=== PATIENT | male | born 1960 | race Caucasian/White ===

== ENCOUNTER → 2024-07-23 06:58 | Outpatient (REF) | payer BC, SELFPAY | LOC: RAD 06:58 | PROVIDERS: ATTENDING PHYSICIAN Physician Assistant; FAMILY PHYSICIAN Family Medicine | DX: E89.0 Postprocedural hypothyroidism (principal); E04.9 Nontoxic goiter, unspecified | CPT/HCPCS: 76536 ==

== ENCOUNTER → 2024-08-23 08:19 | Outpatient (REF) | payer BC, SELFPAY | LOC: RCS 08:19 | PROVIDERS: ATTENDING PHYSICIAN Internal Medicine Cardiovascular Disease; FAMILY PHYSICIAN Family Medicine | DX: I42.8 Other cardiomyopathies (principal) | CPT/HCPCS: 93306 ==

== ENCOUNTER 2025-03-20 09:31 | Emergency (ER) | payer BC, MEDICARE, SELFPAY ==
[2025-03-20 09:53] VITALS: BP 149/97
[2025-03-20 10:10] VITALS: BMI 31.1
--- NOTE | 2025-03-20 11:18 | ED.GENMED ---
History of Present Illness
General
Chief Complaint: Musculo-Skeletal Complaint
Time Seen by Provider: 03/20/25 10:34
History of Present Illness
History of Present Illness:
Note:
CHIEF COMPLAINT(S)
Right shoulder pain following a fall.
HISTORY OF PRESENT ILLNESS
The patient is a 65-year-old male who presents with right shoulder pain. The symptoms began after he slipped while carrying a bucket of water and a bucket of sweat in each hand, landing directly on his right shoulder. This occurred on Tuesday, and he
has been experiencing significant swelling and pain since the incident, with a limitation in the ability to move the shoulder. There is no pain radiating into the chest. The patient reports no improvement and has been managing the pain at home but
thought initially he could sleep it off.
SOCIAL DETERMINANTS AFFECTING HEALTH
The patient reported driving himself to the medical facility, indicating no immediate transportation barriers.
MEDICATIONS
The patient is currently on blood thinners.
REVIEW OF SYSTEMS
- Musculoskeletal: Significant swelling in the right shoulder with pain restricting motion.
- No pain reported radiating to the chest or other areas.
PHYSICAL EXAM
- General: Patient appears well.
- Musculoskeletal: Significant swelling of the right shoulder with no clear bony deformity noted. Tenderness noted along the anterior portion of the shoulder joint, but no bony tenderness observed along the distal clavicle or acromion process.
Passive range of motion is limited due to pain. The radial pulse on the right is strong. Nursing notes reviewed and vital signs reviewed.
PLAN
1. Prescribe analgesics for pain management.
2. Apply ice and maintain immobilization with a sling to the affected shoulder.
3. Follow up with orthopedic consultation for further evaluation, including potential MRI to assess any structural damage in the absence of a fracture.
4. Monitor for potential complications due to the patients use of blood thinners.
DIFFERENTIAL DIAGNOSIS
The Differential Diagnosis includes, in no particular order and is not limited to:
1. Shoulder joint contusion.
2. Hemarthrosis.
3. Rotator cuff injury.
4. Glenohumeral joint dislocation.
5. Shoulder sprain.
6. Acromioclavicular joint injury.
7. Subacromial bursitis.
8. Fracture (unlikely based on initial x-ray results).
9. Labral tear.
10. Frozen shoulder syndrome.
Disposition:
SUMMARY OF ENCOUNTER
The patient is a 65-year-old male who presented with right shoulder pain following a fall two days prior, where he landed directly on his flexed and abducted right shoulder. He has a large hemarthrosis, but x-rays show no evidence of bone injury.
During the visit, the management included applying a sling for immobilization, providing analgesics, and advising on outpatient follow-up for further evaluation and management.
PLAN
The patient was prescribed analgesics for pain relief, instructed to use a sling for shoulder immobilization, and advised to follow up with an service specialist for further assessment and possible additional imaging.
INDEPENDENT INTERPRETATION OF TESTS
My independent interpretation of the x-ray is that there is no evidence of bone injury in the right shoulder.
MEDICATION RECONCILIATION
Analgesics were prescribed for pain management.
MEDICAL DECISION MAKING
The patient presented with acute right shoulder pain post-fall. Consideration was given to the potential diagnosis of hemarthrosis in absence of fracture. The plan included pain management with analgesics and immobilization of the shoulder with a
sling. Outpatient orthopedic follow-up was advised to manage the hemarthrosis and to evaluate for any additional structural injury. The review of the social determinants of health indicated no barriers to transportation, allowing for outpatient
management.
Past History
Past History
ED Past Medical History: HTN and Other (Thyroid disorder)
ED Past Surgical History: None
Social History
Tobacco: Former smoker
Phy Exam
Physical Exam
Physical Exam:
.
Course
Orders/Labs/Results
Orders:
Orders
03/20/25 09:58
CR Shoulder, Trauma - Right Urgent
Comment:
Reason For Exam: fall/pain
Vital Signs
Initial and Last Documented VS:
Initial Vital Signs
Temp Pulse Resp BP Pulse Ox
98.4 F 57 20 149/97 98
03/20/25 09:53 03/20/25 09:53 03/20/25 09:53 03/20/25 09:53 03/20/25 09:53
Last Documented Vital Signs
Temp Pulse Resp BP Pulse Ox
98.4 F 57 20 149/97 98
03/20/25 09:53 03/20/25 09:53 03/20/25 09:53 03/20/25 09:53 03/20/25 09:53
*Pulse Oximetry
Patient hypoxic: no
Comment: 98%
*Critical Care Note
Total Time (30-74mins, 75-104mins- exclusive of procedures): Not Applicable
ED Attending Note
-
Portions of this chart may have been created with voice recognition software.� Occasional wrong word or��sound alike� substitutions may have occurred due to the inherent limitations of voice recognition software.
Discharge Plan
Departure
Patient Disposition: Home (Routine Discharge)
Date of Disposition: 03/20/25
Time of Disposition: 11:18
Patient with high blood pressure during this ER visit?: No
Discharge Problem:
Hemarthrosis of right shoulder
Instructions: Contusion (DC)
Prescriptions:
New
oxycodone 5 mg tablet
5 mg PO Q8H PRN (Reason: Pain) Qty: 10 0RF
No Action
furosemide 40 mg tablet
40 mg PO DAILY
hydrocodone-acetaminophen 5-325 mg Tablet
1 tab PO Q4HPRN PRN (Reason: back pain)
levothyroxine 50 mcg Tablet
150 mcg PO DAILY
Eliquis 5 mg Tablet
5 mg PO BID Qty: 60 0RF
dofetilide 500 mcg Capsule
500 mcg PO Q12H Qty: 60 6RF
Entresto 49-51 mg tablet
1 tab PO BID Qty: 60 6RF
carvedilol 3.125 mg tablet
3.125 mg PO BID Qty: 60 6RF
Referrals:
Sacha Melissa MD [Active, Orthopedics]
July Ledezma MD [Family Provider, Family Practice]
Activity Restrictions/Additional Instructions:
Remove the sling for at least 1 hour each day to allow the elbow and shoulder to stretch and relax. Follow-up with orthopedics as soon as possible
Interventions
Interventions:
*Risk Screen - Suicide Last Done: 03/20/25 09:53
*General Assessment Last Done: 03/20/25 09:53
*Neglect/Abuse Screening Last Done: 03/20/25 09:53
*ED- Fall Risk Assessment Last Done: 03/20/25 10:10
*ED COVID-19 Vaccine History Last Done: 03/20/25 09:53
*Nursing Disposition Last Done: 03/20/25 11:32
ED-Musculoskeletal Assessment Last Done: 03/20/25 10:10
Discharge Date and Time
Discharge Date/Time: 03/20/25 11:35
Print Language: GEORGIAN
== END 2025-03-20 11:35 | disposition home or self-care (01) ==
LOC: EMR 09:31
PROVIDERS: EMERGENCY PHYSICIAN Emergency Medicine; FAMILY PHYSICIAN Family Medicine
DX: M25.011 Hemarthrosis, right shoulder (principal); S49.91XA Unspecified injury of right shoulder and upper arm, initial encounter; W01.0XXA Fall on same level from slipping, tripping and stumbling without subsequent striking against object, initial encounter; I10 Essential (primary) hypertension
CPT/HCPCS: 99283; 73030

== ENCOUNTER → 2025-04-23 14:17 | Outpatient (REF) | payer MEDICARE, BC, SELFPAY | LOC: RAD 14:17 | PROVIDERS: ATTENDING PHYSICIAN Family Medicine | DX: R10.32 Left lower quadrant pain (principal); K62.5 Hemorrhage of anus and rectum | CPT/HCPCS: 74177; Q9967 ==

== ENCOUNTER → 2025-06-06 09:41 | Outpatient (REF) | payer MEDICARE, BC, SELFPAY ==
[2025-06-06 10:34] LABS: Hematocrit 42.1 % (39.0-52.0); Hemoglobin 14.4 g/dL (13.0-18.0); Mean Corp Hgb Conc. 34.2 g/dL (33.0-37.0); Mean Corpuscular Volume 90.7 fL (80.0-94.0); Nucleated Red Blood Cells % 0 % (-); Platelet Count 236 10^3/uL (130-400); Red Cell Dist. Width 12.6 % (11.5-14.5)
[2025-06-06 11:15] LABS: Blood Urea Nitrogen 19 mg/dl (9-20); Calcium 9.8 mg/dl (8.4-10.2); Carbon Dioxide 28 mmol/L (22-30); Chloride 105 mmol/L (98-107); Glucose 107 mg/dl (70-99); Potassium 4.6 mmol/L (3.5-5.1); Sodium 141 mmol/L (135-145); eGFR > 60.00
== END ==
LOC: REG 09:41
PROVIDERS: ATTENDING PHYSICIAN Orthopaedic Surgery Hand Surgery; FAMILY PHYSICIAN Family Medicine
DX: Z01.818 Encounter for other preprocedural examination (principal)
CPT/HCPCS: 36415; 80048; 85025

== ENCOUNTER 2025-07-08 08:50 | Outpatient (RCR) | payer MEDICARE, BC, SELFPAY | END 2025-07-08 23:59 | disposition home or self-care (01) | LOC: RPT 08:50 | PROVIDERS: ATTENDING PHYSICIAN Student in an Organized Health Care Education/Training Program; FAMILY PHYSICIAN Family Medicine | DX: Z47.89 Encounter for other orthopedic aftercare (principal); Z98.890 Other specified postprocedural states (principal); Z73.6 Limitation of activities due to disability; M62.81 Muscle weakness (generalized); S46.211D Strain of muscle, fascia and tendon of other parts of biceps, right arm, subsequent encounter; M25.511 Pain in right shoulder; W12.XXXD Fall on and from scaffolding, subsequent encounter | CPT/HCPCS: 97010; 97110; 97140; 97162 ==

== ENCOUNTER 2025-08-09 06:53 | Outpatient (RCR) | payer MEDICARE, BC, SELFPAY | END 2025-08-09 23:59 | disposition home or self-care (01) | LOC: RPT 06:53 | PROVIDERS: ATTENDING PHYSICIAN Student in an Organized Health Care Education/Training Program; FAMILY PHYSICIAN Family Medicine | DX: Z47.89 Encounter for other orthopedic aftercare (principal); Z73.6 Limitation of activities due to disability; M62.81 Muscle weakness (generalized); S46.211D Strain of muscle, fascia and tendon of other parts of biceps, right arm, subsequent encounter; M25.511 Pain in right shoulder; W12.XXXD Fall on and from scaffolding, subsequent encounter; Z98.890 Other specified postprocedural states | CPT/HCPCS: 97010; 97110; 97140 ==

== ENCOUNTER → 2025-09-02 07:58 | Outpatient (REF) | payer MEDICARE, BC, SELFPAY | LOC: RCS 07:58 | PROVIDERS: ATTENDING PHYSICIAN Internal Medicine Cardiovascular Disease; FAMILY PHYSICIAN Family Medicine | DX: I50.20 Unspecified systolic (congestive) heart failure (principal); I48.19 Other persistent atrial fibrillation | CPT/HCPCS: 93306 ==

== ENCOUNTER 2025-09-06 06:44 | Outpatient (RCR) | payer MEDICARE, BC, SELFPAY | END 2025-09-06 23:59 | disposition home or self-care (01) | LOC: RPT 06:44 | PROVIDERS: ATTENDING PHYSICIAN Student in an Organized Health Care Education/Training Program; FAMILY PHYSICIAN Family Medicine | DX: Z47.89 Encounter for other orthopedic aftercare (principal); Z73.6 Limitation of activities due to disability; M62.81 Muscle weakness (generalized); S46.211D Strain of muscle, fascia and tendon of other parts of biceps, right arm, subsequent encounter; M25.511 Pain in right shoulder; W12.XXXD Fall on and from scaffolding, subsequent encounter; Z98.890 Other specified postprocedural states | CPT/HCPCS: 97010; 97110; 97140 ==

== ENCOUNTER 2025-10-01 06:51 | Outpatient (RCR) | payer MEDICARE, BC, SELFPAY | END 2025-10-01 10:37 | disposition home or self-care (01) | LOC: RPT 06:51 | PROVIDERS: ATTENDING PHYSICIAN Student in an Organized Health Care Education/Training Program; FAMILY PHYSICIAN Family Medicine | DX: Z47.89 Encounter for other orthopedic aftercare (principal); Z73.6 Limitation of activities due to disability; M62.81 Muscle weakness (generalized); S46.211D Strain of muscle, fascia and tendon of other parts of biceps, right arm, subsequent encounter; M25.511 Pain in right shoulder; W12.XXXD Fall on and from scaffolding, subsequent encounter | CPT/HCPCS: 97010; 97110; 97140 ==